=== PATIENT | female | born 2005 | race Two or more races ===

== ENCOUNTER 2024-08-01 00:01 | Emergency (ER) | payer BC, MEDICAID ==
[~2024-08-01] VITALS: Ht 160 cm; Wt 66.9 kg
--- NOTE | 2024-08-01 00:28 | ED.PDOC ---
Musculoskeletal HPI Comments 18-year-old female presents to ER with complaints of left knee pain x 5 days. Patient reports she has been experiencing pain/swelling to left knee s/p her left knee "buckling inwards" while walking 5 days ago and reports that she was seen and evaluated for her symptoms at urgent care four days ago and diagnosed with a left knee sprain but states she she is still experiencing left knee pain prompting her to come back to ER. Notes that she did have a left knee x-ray done that was unremarkable and was told to follow up for an MRI of left knee but states she has not been able to get an appointment yet with her PCP for an MRI of left knee. Patient presents to ER ambulatory with use of crutches and Ameya bandage to left knee. Denies fever, numbness/tingling, hip pain or any further symptoms/complaints Chief Complaint: Lower Extremity Time Seen by MD: 00:23 Primary Care Provider: UNKNOWN Reviewed Notes: Nurses Notes, Medications, Allergies Information Source: Patient Mode of Arrival: Ambulatory Past Medical History PAST MEDICAL HISTORY: Denies Surgical History: Denies all surgeries Family History Family History: Unknown Social History Lives In: Home Constitutional: denies: chills, diaphoresis, fatigue, fever, malaise, sweats, weakness, others EENTM: denies: blurred vision, double vision, ear bleeding, ear discharge, ear drainage, ear pain, ear ringing, eye pain, eye redness, hearing loss, mouth pain , mouth swelling, nasal discharge, nose bleeding, nose congestion, nose pain, photophobia, tearing, throat pain, throat swelling, voice changes, others Respiratory: denies: cough, hemoptysis, orthopnea, SOB at rest, shortness of breath, SOB with excertion, stridor, wheezing, others Cardiovascular: denies: chest pain, dizzy spells, diaphoresis, Dyspnea on exertion, edema, irregular heart beat, left arm pain, lightheadedness, palpitations, PND, syncope, others Gastrointestinal: denies: abdomen distended, abdominal pain, blood streaked bowels, constipated, diarrhea, dysphagia, difficulty swallowing, hematemesis, melena, nausea, poor appetite, poor fluid intake, rectal bleeding, rectal pain, vomiting, others Genitourinary: denies: abnormal vagina bleeding, burning, dyspareunia, dysuria, flank pain, frequency, hematuria, incontinence, pain, , vagina discharge, urgency, others Neurological: denies: dizziness, fainting, headache, left sided numbness, left sided weakness, numbness, paresthesia, pre-existing deficit, right sided numbness, right sided weakness, seizure, speech problems, tingling, tremors, weakness, others Musculoskeletal: reports: others (As stated in HPI) Integumetry: reports: others (As stated in HPI) Allergic/Immunocompromised: denies: Difficulty Healing, Frequent Infections, Hives, Itching, others Hematologic/Lymphatic: denies: anemia, blood clots, easy bleeding, easy bruising, swollen glands, others Endocrine: denies: excessive hunger, excessive sweating, excessive thirst, excessive urination, flushing, intolerance to cold, intolerance to heat, unexplained weight gain, unexplained weight loss, others Psychiatric: denies: anxiety, bipolar disorder, depression, hopeless, panic disorder, schizophrenia, sleepless, suicidal, others Physical Exam General Appearance: No Apparent Distress HEENT: PERRL/EOMI Neck: Full Range of Motion, Non-Tender, Normal Respiratory: Chest Non-Tender, Lungs Clear, No Accessory Muscle Use, No Respiratory Distress, Normal Breath Sounds Cardiovascular: No Murmur, No Gallop, Regular Rate/Rhythm Breast Exam: Deferred Gastrointestinal: NOT DONE Genitalia: Deferred Pelvic: Deferred Rectal: Deferred Extremities: No calf tenderness, Normal capillary refill, Normal range of motion Musculoskeletal : Extremity Location: Knee (TTP/mild swelling noted to left anterior knee. Positive anterior drawer test left knee. Positive Kenia's test left knee. Pulses intact. Patient able to bear minimal weight on left leg due to pain localized to left knee. No deformity/further skin changes noted. No other TTP to left lower extremity noted) Neurologic: Alert, No Motor Deficits, Normal Affect, Normal Mood, No Sensory Deficits Cerebellar Function: Normal Reflexes: Normal Skin: Dry, Normal Color, Warm Peripheral Pulses: 2+ femoral (R), 2+ femoral (L), 2+ dorsalis pedis (R), 2+ dorsalis pedis (L), 2+ Radial (R), 2+ Radial (L), 2+ Brachial (R), 2+ Brachial (L) Lymphatic: No Adenopathy Was a procedure done? Was a procedure done?: No Sedation Sedation?: No Differential Diagnosis EXT Differential Diagnosis: Fracture, Dislocation, Neurovascular injury X-Ray, Labs, Meds, VS Toradol 60 mg IM ordered Patient neurovascularly intact Left knee immobilizer applied Advised on continued use of crutches Advised on rest/no strenuous activity, elevation and alternate ice on/off as needed for pain/swelling Discussed with patient that she will benefit from MRI of left knee for further evaluation of symptoms Advised to follow up with PCP and orthopedics in 1-2 days Patient verbalized understanding and agreeable with current plan of care Advised to return to ER immediately if symptoms worsen Time of 1ST Reevaluation: 00:10 Reevaluation 1ST: N/A Patient Education/Counseling: Diagnosis, Treatment, Prognosis, Need For Follow Up Family Education/Counseling: No Family Present Departure 1 Departure Time of Disposition: 00:22 Impression: Primary Impression: Left knee sprain Qualified Codes: S83.92XA - Sprain of unspecified site of left knee, initial encounter Disposition: HOME / SELF CARE / HOMELESS Condition: Stable Discharged With: Friend Critical Care Note Critical Care Time?: No Stability Stability form required: No Heart Score Heart Score: Heart Score Response (Comments) Value History N/A 0 EKG N/A 0 Age N/A 0 Risk Factors N/A 0 Troponin N/A 0 Total 0 JOI ZURITA Aug 01, 2024 00:28
[2024-08-01 02:57] VITALS: BP 109/43; TEMP 98
[2024-08-01] MEDS: KETOROLAC TROMETH 60MG/2ML VIAL IM ONE (04:08)
[2024-08-01 04:09] VITALS: PULSE 100; RESP 19; O2SAT 95
== END 2024-08-01 04:15 | disposition home or self-care (01) ==
LOC: ER 00:01
DX: S83.92XA Sprain of unspecified site of left knee, initial encounter (principal); X58.XXXA Exposure to other specified factors, initial encounter; Y93.01 Activity, walking, marching and hiking; Y92.89 Other specified places as the place of occurrence of the external cause; Y99.8 Other external cause status
CPT/HCPCS: 29505; 96372; 99283; J1885

== ENCOUNTER 2024-10-03 02:46 | Emergency (ER) | payer BC, MEDICAID ==
[~2024-10-03] VITALS: Ht 160 cm; Wt 59.0 kg
[2024-10-03] MEDS: ONDANSETRON ODT 4 MG TAB PO ONE (03:31)
[2024-10-03] MEDS: ACETAMINOPHEN/CODEINE#3 (300/30mg) TAB PO ONE (03:31)
--- NOTE | 2024-10-03 03:33 | ED.PDOC ---
HPI (NEURO) HPI Comments 19 year old female presents to ER with complaints of flu-like symptoms x5 days. Patient reports she has been experiencing intermittent body aches/chills, sinus congestion, intermittent nausea and intermittent right-sided frontal headache x5 days. Reports that she last took Tylenol 10:00 p.m. prior to arrival to ER. She rates her current right sided headache pain an 8/10 and presents to ER ambulatory on arrival, alert and oriented x4, with steady gait, in mild distress with vitals stable. Denies fever, vomiting, dizziness, abdominal pain, changes in urination/bm or any further symptoms/complaints Chief Complaint: Headache Time Seen by MD: 02:55 Primary Care Provider: UNKNOWN Reviewed Notes: Nurses Notes, Medications, Allergies Information Source: Patient Mode of Arrival: Ambulatory Past Medical History PAST MEDICAL HISTORY: Denies Surgical History: Denies all surgeries [facility] 09-13-24 Family History Family History: Unknown Social History Smoker: Non-Smoker Alcohol: Denies ETOH Use Drugs: Denies Drug Use Lives In: Home Constitutional: reports: others (As stated in HPI) EENTM: reports: others (As stated in HPI) Respiratory: denies: cough, hemoptysis, orthopnea, SOB at rest, shortness of breath, SOB with excertion, stridor, wheezing, others Cardiovascular: denies: chest pain, dizzy spells, diaphoresis, Dyspnea on exertion, edema, irregular heart beat, left arm pain, lightheadedness, palpitations, PND, syncope, others Gastrointestinal: reports: others (As stated in HPI) Genitourinary: denies: abnormal vagina bleeding, burning, dyspareunia, dysuria, flank pain, frequency, hematuria, incontinence, pain, , vagina discharge, urgency, others Neurological: reports: others (As stated in HPI) Musculoskeletal: denies: back pain, gout, joint pain, joint swelling, muscle pain, muscle stiffness, neck pain, others Integumetry: denies: bruises, change in color, change in hair/nails, dryness, laceration, lesions, lumps, rash, wounds, others Allergic/Immunocompromised: denies: Difficulty Healing, Frequent Infections, Hives, Itching, others Hematologic/Lymphatic: denies: anemia, blood clots, easy bleeding, easy bruising, swollen glands, others Endocrine: denies: excessive hunger, excessive sweating, excessive thirst, excessive urination, flushing, intolerance to cold, intolerance to heat, unexplained weight gain, unexplained weight loss, others Psychiatric: denies: anxiety, bipolar disorder, depression, hopeless, panic disorder, schizophrenia, sleepless, suicidal, others Physical Exam General Appearance: Mild Distress HEENT: Normal ENT Inspection, PERRL/EOMI, Pharynx Normal, TMs Normal Neck: Full Range of Motion, Non-Tender, Normal Respiratory: Chest Non-Tender, Lungs Clear, No Accessory Muscle Use, No Respiratory Distress, Normal Breath Sounds Cardiovascular: No Murmur, No Gallop, Regular Rate/Rhythm Breast Exam: Deferred Gastrointestinal: NOT DONE Genitalia: Deferred Pelvic: Deferred Rectal: Deferred Extremities: Normal capillary refill, Normal range of motion Neurologic: Alert, 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 Was a procedure done?: No Sedation Sedation?: No Differential Diagnosis (SZ) Headache: Subarachnoid Hemorrhage, Subdural Hemorrhage, Other (COVID 19, influenza) X-Ray, Labs, Meds, VS Vital Signs Date Time Temp Pulse Resp B/P (MAP) Pulse Ox O2 Delivery O2 Flow Rate FiO2 10/03/24 03:36 78 16 98 Room Air 10/03/24 03:36 97.9 78 16 127/83 (98) 98 97.9 10/03/24 02:50 97.9 78 16 127/83 98 97.9 Lab Test 10/03/24 03:30 10/03/24 03:23 Range/Units Influenza Type A Antigen Negative Negative Influenza Type B Antigen Negative Negative SARS-CoV-2 Antigen (Rapid) Negative NEGATIVE Urine Color Yellow Yellow Urine Clarity Turbid H Clear Urine pH 6.0 5.0-9.0 Urine Specific [place] 1.028 1.001-1.035 Urine Protein Trace H Negative Urine Ketones Negative Negative Urine Blood 1+ H Negative /uL Urine Nitrite Negative Negative Urine Bilirubin Negative Negative Urine Urobilinogen Normal Negative mg/dL Urine Leukocyte Esterase Negative Negative /uL Urine RBC 1 0 - 4 /hpf Urine Microscopic WBC 5 0-5 /HPF Urine Squamous Epithelial Cells Few <5 /hpf Urine Calcium Oxalate Crystals Few None Seen Urine Bacteria Few H None Seen /hpf Urine Mucus Few None Seen Urine Glucose Normal Normal mg/dL Current Medications Medications (Trade) Dose Ordered Sig/Justin Route Start Time Stop Time Status Last Admin Acetaminophen/ Codeine Phosphate (Tylenol W/Cod #3 Tablet) 1 tab ONCE ONCE PO 10/03/24 03:30 10/03/24 03:31 DC 10/03/24 03:31 Ondansetron HCl (Zofran Po) 4 mg ONCE ONCE PO 10/03/24 03:30 10/03/24 03:31 DC 10/03/24 03:31 Urinalysis reviewed without any significant abnormalities Swab results reviewed - negative Tylenol #3 one tablet p.o. ordered Zofran 4 mg p.o. ordered Patient had improvement in symptoms, denied any nausea and in no distress prior to discharge Advised to follow up with PCP in 1-2 days Patient verbalized understanding and agreeable with current plan of care Advised to return to ER immediately if symptoms worsen Time of 1ST Reevaluation: 03:32 Reevaluation 1ST: N/A Patient Education/Counseling: Diagnosis, Treatment, Prognosis, Need For Follow Up Family Education/Counseling: No Family Present Departure 1 Departure Time of Disposition: 04:24 Impression: Primary Impression: Sinusitis, acute Qualified Codes: J01.90 - Acute sinusitis, unspecified Disposition: 01 HOME / SELF CARE / HOMELESS Condition: Stable e-Prescriptions Amoxicillin & Pot Clavulanate (Amoxicillin/Potassium Cla) 875 Mg Tab 1 TAB PO BID for 7 Days, #14 TAB 0 Refills Prov: JOI ZURITA 10/03/24 Ondansetron Odt 4MG Tab (ZOFRAN PO) 4 Mg Tb 4 MG PO Q8HPRN, #14 TAB 0 Refills ODT TAB-DISSOLVE IN MOUTH, THEN SWALLOW Prov: JOI ZURITA 10/03/24 Ibuprofen (Ibuprofen) 800 Mg Tab 1 TAB PO TID PRN, #30 TAB 0 Refills Prov: JOI ZURITA 10/03/24 Discharged With: Friend Critical Care Note Critical Care Time?: No Stability Stability form required: No Heart Score Heart Score: Heart Score Response (Comments) Value History N/A 0 EKG N/A 0 Age N/A 0 Risk Factors N/A 0 Troponin N/A 0 Total 0 JOI ZURITA Oct 03, 2024 03:33
[2024-10-03 03:36] VITALS: BP 127/83; PULSE 78; RESP 16; TEMP 97.9; O2SAT 98
[2024-10-03 04:19] LABS: COVID19 ANTIGEN SOFIA FIA NEGATIVE (NEGATIVE)
[2024-10-03] MEDS ORDERED: AMOX875T4 PO (04:26)
[2024-10-03] MEDS ORDERED: IBUP-1456 PO (04:26)
[2024-10-03] MEDS ORDERED: ZOFR4T PO (04:26)
[2024-10-03 04:32] LABS: Urine Protein, UAD TRACE (Negative)
== END 2024-10-03 05:17 | disposition home or self-care (01) ==
LOC: ER 02:46
DX: J01.90 Acute sinusitis, unspecified (principal); Z20.822 Contact with and (suspected) exposure to COVID-19; Z79.899 Other long term (current) drug therapy
CPT/HCPCS: 36415; 81001; 87426; 87804; 99283; Q0162